=== PATIENT | female | born 1945 | race Caucasian/White ===

== ENCOUNTER 2020-08-23 16:45 | Inpatient (IN) | payer MEDICARE, OTHER ==
[~2020-08-23] VITALS: Ht 165.1 cm; Wt 59.0 kg
[2020-08-23 17:56] LABS: HEMOGLOBIN 9.2 gm/dl (12.3-15.3); RED BLOOD COUNT 3.13 M/UL (4.00-5.10); WHITE BLOOD COUNT 9.4 K/UL (4.5-11.0)
[2020-08-24 03:10] LABS: HEMOGLOBIN 7.8 gm/dl (12.3-15.3)
[2020-08-24 03:13] LABS: RED BLOOD COUNT 2.68 M/UL (4.00-5.10); WHITE BLOOD COUNT 6.3 K/UL (4.5-11.0)
[2020-08-24] MEDS ORDERED: MOBIC15 MG PO (07:20)
[2020-08-24] MEDS ORDERED: SYNTHROID100 MCG PO (07:20)
[2020-08-24] MEDS ORDERED: VITAMIN D325 MCG PO (07:21)
[2020-08-24] MEDS ORDERED: TYLENOL EXTRA500 MG PO (07:21)
[2020-08-25 05:32] LABS: HEMOGLOBIN 7.8 gm/dl (12.3-15.3); RED BLOOD COUNT 2.75 M/UL (4.00-5.10); WHITE BLOOD COUNT 5.9 K/UL (4.5-11.0)
[2020-08-25] MEDS ORDERED: LASIX20 MG PO (09:32)
[2020-08-25] MEDS ORDERED: CLOPIDOGREL75 MG PO (09:32)
[2020-08-25] MEDS ORDERED: VENTOLIN HFA 66.7 GM INH (09:32)
[2020-08-25] MEDS ORDERED: ASPIRIN EC81 MG PO (09:32)
[2020-08-25] MEDS ORDERED: ATORVASTATIN CA20 MG PO (09:32)
== END 2020-08-25 09:57 | disposition home or self-care (01) | DRG 247 ==
LOC: ER1 16:45 → CCU 21:51
PROVIDERS: Physician Assistant; ADMIT Internal Medicine Cardiovascular Disease
PROC: 02C03ZZ Extirpation of Matter from Coronary Artery, One Artery, Percutaneous Approach (ICD-10-PCS; principal; 2020-08-23)
PROC: 027035Z Dilation of Coronary Artery, One Artery with Two Drug-eluting Intraluminal Devices, Percutaneous Approach (ICD-10-PCS; principal; 2020-08-23)
PROC: 4A023N7 Measurement of Cardiac Sampling and Pressure, Left Heart, Percutaneous Approach (ICD-10-PCS; 2020-08-23)
PROC: B2161ZZ Fluoroscopy of Right and Left Heart using Low Osmolar Contrast (ICD-10-PCS; 2020-08-23)
DX: I21.19 ST elevation (STEMI) myocardial infarction involving other coronary artery of inferior wall (principal); N17.9 Acute kidney failure, unspecified; I25.10 Atherosclerotic heart disease of native coronary artery without angina pectoris; D53.9 Nutritional anemia, unspecified; E03.9 Hypothyroidism, unspecified; R55 Syncope and collapse; I25.5 Ischemic cardiomyopathy; I48.0 Paroxysmal atrial fibrillation; E53.8 Deficiency of other specified B group vitamins; Z20.822 Contact with and (suspected) exposure to COVID-19; J44.9 Chronic obstructive pulmonary disease, unspecified; Z87.891 Personal history of nicotine dependence; Z82.49 Family history of ischemic heart disease and other diseases of the circulatory system
CPT/HCPCS: ECHO; 36415; 71045; 80048; 80053; 80061; 82550; 82553; 83036; 83874; 83880; 84439; 84443; 84484; 85025; 85347; 92973; 93005; 93306; 94664; 94760; 96374; 99152; 99153; 99285; C1725; C1757; C1769; C1874; C1887; C1894; J0461; J1644; J2250; J2370; J3010; J3246; J7040; Q9965; U0002